=== PATIENT | female | born 1990 | race Caucasian/White ===

== ENCOUNTER 2017-03-18 06:29 | Day surgery (SDC) | payer OTHER ==
[~2017-03-18] VITALS: Ht 160 cm; Wt 113.4 kg
--- NOTE | 2017-03-18 09:11 | Anesthesia Record ---
Anesthesia Record Part I Total IV fluids: 1200 EBL (ml): 0 Urine Output: 0 B/P: 136/80 % SaO2: 99 Pulse: 104 Resps: 12 Temp: 98 Patient is: Awake, Stable Stable to PACU at: 0910 at 0911
--- NOTE | 2017-03-18 09:12 | Anesthesia Record ---
Anesthesia Record Part II Discharge time: 939 Destination: Same day surgery PACU nurse assessment review? Yes Patient is: Awake, Stable Anesthesia complications? No at 0912
--- NOTE | 2017-03-18 09:24 | Operative Note ---
Surgeon/Diagnoses Surgeon/Glass Pulverizer Equipment Operator(s) Date of procedure: 03/18/17 Surgeon: Mary Carmen Monae MD Diagnoses Pre-op diagnosis: Recuurent strep tonsilitis Post-op diagnosis Same Procedure Procedure Procedure: Tonsillectomy Indications: FAISAL GILL is a 26 year-old Female with a history of recurrent strep tonsilitis. She has had approximately 4 episodes yearly for the past 4-5 years. She works as an momd teacher. Findings: 2+ tonsils Procedure Description: After informed consent was obtained patient was brought to the operating room and placed supine on operating table. The bed was rotated 90 degrees counterclockwise and she was draped in the usual fashion for this procedure. A Ginger Trip mouth gag was placed in the patient's mouth with care not to injure the lips teeth tongue or gums and she was gently placed in suspension. A red rubber catheter was threaded down the RIGHT near and secured at the nasal alar with a curved tonsil clamp. The RIGHT tonsil was grasped with a straight Allis clamp and retracted medially. The tonsil was dissected using Bovie electrocauterization and once the RIGHT tonsil was removed the LEFT was removed in the same fashion. Once the tonsils removed the adenoid was inspected and this was not significantly hypertrophied. The red rubber catheter was then released and removed and the Ginger-Trip mouth gag was placed in the release position for approximately 2 minutes and then reexpanded. Minor bleeding from the tonsillar beds was controlled using suction Bovie cautery. The Ginger-Trip mouth gag was then released and removed from the patient's mouth and the procedure was terminated. EBL (ml): 5 Anesthesia: General Specimens: Bilateral tonsils Disposition Disposition: To the recovery room in good condition. at 0924
[2017-03-18 10:42] VITALS: BP 26/78
== END 2017-03-18 10:15 | disposition home or self-care (01) ==
LOC: SDC 06:29
PROVIDERS: Otolaryngology
PROC: 0CTPXZZ Resection of Tonsils, External Approach (ICD-10-PCS; principal; 2017-03-18 08:15)
DX: J03.01 Acute recurrent streptococcal tonsillitis (principal); J35.01 Chronic tonsillitis
CPT/HCPCS: J2405